=== PATIENT | female | born 1970 | race Caucasian/White ===

== ENCOUNTER 2023-01-08 15:19 | Emergency (ER) | payer MEDICAID ==
[~2023-01-08] VITALS: Ht 152.4 cm; Wt 73.0 kg
[2023-01-08 15:29] VITALS: O2SAT 100
[2023-01-08] MEDS ORDERED: KETOROLAC 60MG/2ML VIAL IM ONE (18:45)
[2023-01-08] MEDS ORDERED: IBUP-2028 PO (18:52)
[2023-01-08] MEDS ORDERED: ACET-2708 PO (18:52)
[2023-01-08 19:02] VITALS: BP 127/54; PULSE 62; RESP 16; TEMP 98.7
== END 2023-01-08 19:04 | disposition home or self-care (01) ==
LOC: ER 15:19
DX: S20.211A Contusion of right front wall of thorax, initial encounter (principal); J45.909 Unspecified asthma, uncomplicated; I10 Essential (primary) hypertension; W18.39XA Other fall on same level, initial encounter; Y93.89 Activity, other specified; Y92.89 Other specified places as the place of occurrence of the external cause; Y99.8 Other external cause status
CPT/HCPCS: 71101; 96372; 99283; J1885; Z7610